=== PATIENT | male | born 1955 | race Caucasian/White ===

== ENCOUNTER → 2018-02-03 | Outpatient (CLI) | payer BC ==
[2018-02-03 15:50] LABS: BASOPHILS % 0.6 % (0.0-2.0); EOSINOPHILS % 2.6 % (0.0-5.0); HEMATOCRIT. 47.9 % (42.0-52.0); HEMOGLOBIN. 16.3 g/dL (14.0-18.0); LYMPHOCYTES % 26.1 % (20.0-50.0); MEAN CORPUSCULAR HEMOGLOBIN 31.1 pg (28.0-32.0); MEAN CORPUSCULAR VOLUME 91.5 fL (80.0-94.0); MEAN PLATELET VOLUME 7.7 fl (7.4-10.4); MONOCYTES % 8.3 % (2.0-8.0); NEUTROPHILS % 62.4 % (40.0-76.0); PLATELET 204 x1000/uL (130-400); RED BLOOD CELL COUNT 5.24 mill/uL (4.7-6.1); RED CELL DISTRIBUTION WIDTH 13.4 % (11.6-14.6)
[2018-02-03 16:13] LABS: CHLORIDE 103 mEq/L (98-107)
[2018-02-03 17:15] LABS: HEPATITIS B SURFACE ANTIGEN NEGATIVE
[2018-02-03 17:44] LABS: HEPATITIS B CORE AB IGM NEGATIVE
[2018-02-03 17:45] LABS: HEPATITIS A AB IGM NEGATIVE (NEGATIVE)
[2018-02-05 15:06] LABS: ALPHA FETOPROTEIN TUMOR MARKER 4.7 ng/mL (0.0-8.3)
== END | disposition home or self-care (01) ==
LOC: LAB 13:28
PROVIDERS: ATTEND Internal Medicine Gastroenterology
DX: K76.89 Other specified diseases of liver (principal)
CPT/HCPCS: 36415; 76700; 80053; 82105; 85025; 86301; 86705; 86709; 86803; 87340